=== PATIENT | female | born 1990 | race Caucasian/White ===

== ENCOUNTER 2020-03-13 14:11 | Emergency (ER) | payer SELFPAY ==
[~2020-03-13] VITALS: Ht 182.9 cm; Wt 67.0 kg
--- NOTE | 2020-03-13 15:13 | PHYS DOC ---
Past History Past Medical History: Other Additional Past Medical Histor: HERPES, IV DRUG ABUSE (MIKEL HARPER APRN) Past Surgical History: Tonsillectomy, Other Additional Past Surgical Histo: RIGHT KNEE (MIKEL HARPER APRN) Additional Smoking Information: VAPES Alcohol Use: None (MIKEL HARPER APRN) General Adult EDM: Chief Complaint: ABDOMINAL PAIN HPI: HPI: Patient is a 29-year-old female who presents with nausea and vomiting for the past 6 months. Patient states "I think I have intestinal parasites, I see worms in my poop". Patient reports last 6 months she has felt fatigue and lost 20 pounds this last year. Patient denies pain or any recent illness. (MIKEL HARPER APRN) Review of Systems: Review of Systems: Constitutional: Denies fever or chills Eyes: Denies change in visual acuity HENT: Denies nasal congestion or sore throat Respiratory: Denies cough or shortness of breath Cardiovascular: Denies chest pain or edema GI: Reports abdominal pain, nausea, vomiting, Denies bloody stools or diarrhea : Denies dysuria Musculoskeletal: Denies back pain or joint pain Integument: Denies rash Neurologic: Denies headache, focal weakness or sensory changes Endocrine: Denies polyuria or polydipsia Lymphatic: Denies swollen glands Psychiatric: Denies depression or anxiety (MIKEL HARPER APRN) Allergies: Allergies: Allergies Coded Allergies Type Severity Reaction Last Updated Verified No Known Drug Allergies 03/13/20 No (MIKEL HARPER APRN) Physical Exam: PE: Constitutional: Well developed, well nourished, no acute distress, non-toxic appearance. [] HENT: Normocephalic, atraumatic, bilateral external ears normal, oropharynx moist, no oral exudates, nose normal. [] Eyes: PERRLA, EOMI, conjunctiva normal, no discharge. [] Neck: Normal range of motion, no tenderness, supple, no stridor. [] Cardiovascular:Heart rate regular rhythm, no murmur [] Lungs & Thorax: Bilateral breath sounds clear to auscultation [] Abdomen: Bowel sounds normal, soft, no tenderness, no masses, no pulsatile masses. [] Skin: Warm, dry, no erythema, no rash. [] Back: No tenderness, no CVA tenderness. [] Extremities: No tenderness, no cyanosis, no clubbing, ROM intact, no edema. [] Neurologic: Alert and oriented X 3, normal motor function, normal sensory function, no focal deficits noted. [] Psychologic: Affect normal, judgement normal, mood normal. [] (MIKEL HARPER APRN) Current Patient Data: Vital Signs: Vital Signs Date Time Temp Pulse Resp B/P (MAP) Pulse Ox O2 Delivery O2 Flow Rate FiO2 03/13/20 14:20 97.7 97 20 148/82 (104) 98 Room Air (MIKEL HARPER APRN) EKG: EKG: [] (MIKEL HARPER APRN) Radiology/Procedures: Radiology/Procedures: [] (MIKEL HARPER APRN) Heart Score: Risk Factors: Risk Factors: DM, Current or recent (<one month) smoker, HTN, HLP, family history of CAD, obesity. Risk Scores: Score 0 - 3: 2.5% MACE over next 6 weeks - Discharge Home Score 4 - 6: 20.3% MACE over next 6 weeks - Admit for Clinical Observation Score 7 - 10: 72.7% MACE over next 6 weeks - Early Invasive Strategies (MIKEL HARPER APRN) Course & Med Decision Making: Course & Med Decision Making Pertinent Labs and Imaging studies reviewed. (See chart for details) 29-year-old female with nausea and vomiting and states that she thinks she has intestinal parasite because she sees worms in her poop. Stool sample sent for ova and parasites, UA sent. Will reassess once results come back. CMC, BMP, UA all negative. Discharge patient to home. Will call patient with results if positive. [] (MIKEL HARPER APRN) Course & Med Decision Making I have participated in the care of this patient and I have reviewed and agree with all pertinent clinical information above including history, exam, and recommendations. (MITZI REDD MD) Ana Disclaimer: Ana Disclaimer: This electronic medical record was generated, in whole or in part, using a voice recognition dictation system. (MIKEL HARPER APRN) Departure Departure: Impression: Primary Impression: Nausea & vomiting Qualified Codes: R11.2 - Nausea with vomiting, unspecified Disposition: 01 DC HOME SELF CARE/HOMELESS Condition: GOOD Referrals: PCP,NO (PCP) Patient Instructions: Nausea and Vomiting, [id number] Additional Instructions: EMERGENCY DEPARTMENT GENERAL DISCHARGE INSTRUCTIONS Thank you for coming to [facility] (ED) today and trusting us with you care. We trust that you had a positivie experience in our Emergency Department. If you wish to speak to the department management, you may call the director at [phone]. YOUR FOLLOW UP INSTRUCTIONS ARE FOLLOWS: 1. Do you have a private Doctor? If you do not have a private doctor, please ask for a resource list of physicians or clinics that may be able to assist you with follow up care. 2. The Emergency Physician has interpreted your x-rays. The X-Ray specialist will also review them. If there is a change in the findings, you will be notified in 48 hours when at all possible. 3. A lab test or culture has been done, your results will be reviewed and you will be notified if you need a change in treatment. ADDITIONAL INSTRUCTIONS AND INFORMATION: 1. Your care today has been supervised by a physician who is specially trained in emergency care. Many problems require more than one evaluation for a complete diagnosis and treatment. We recommend that you schedule your follow up appointment as recommended to ensure complete treatment of you illness or injury. If you are unable to obtain follow up care and continue to have a problem, or if your condition worsens, we recommend that you return to the ED. 2. We are not able to safely determine your condition over the phone nor are we able to give sound medical advice over the phone. For these safety reasons, if you call for medical advice we will ask you to come to the ED for further evaluation. 3. If you have any questions regarding these discharge instructions please call the ED at [phone]. SAFETY INFORMATION: In the interest of safety, wellness, and injury prevention; we encourage you to wear your sealbelt, if you smoke; quite smoking, and we encourage family to use a prot ective helmet for bicycling and other sporting events that present an increased risk for head injury. IF YOUR SYMPTOMS WORSEN OR NEW SYMPTOMS DEVELOP, OR YOU HAVE CONCERNS ABOUT YOUR CONDITION; OR IF YOUR CONDITION WORSENS WHILE YOU ARE WAITING FOR YOUR FOLLOW UP APPOINTMENT; EITHER CONTACT YOUR PRIMARY CARE DOCTOR, THE PHYSICIAN WHOSE NAME AND NUMBER YOU WERE GIVEN, OR RETURN TO THE ED IMMEDIATELY. MIKEL HARPER APRN Mar 13, 2020 15:13 MITZI REDD MD Mar 14, 2020 13:24
[2020-03-13 15:41] LABS: BASO % 1 % (0-3); EOS # 0.2 x10^3/uL (0.0-0.7); EOS % 3 % (0-3); HEMATOCRIT 34.9 % (36.0-47.0); HEMOGLOBIN 11.1 g/dL (12.0-15.5); LYMPH # 1.9 x10^3/uL (1.0-4.8); LYMPH % 31 % (24-48); MEAN CORPUSCULAR HEMOGLOBIN 27 pg (25-35); MEAN CORPUSCULAR HGB CONC 32 g/dL (31-37); MEAN CORPUSCULAR VOLUME 85 fL (79-100); MONO # 0.6 x10^3/uL (0.0-1.1); MONO % 10 % (0-9); NEUT # 3.5 x10^3uL (1.8-7.7); NEUT % 56 % (31-73); PLATELET COUNT 214 x10^3/uL (140-400); RED BLOOD COUNT 4.13 x10^6/uL (3.50-5.40); WHITE BLOOD COUNT 6.2 x10^3/uL (4.0-11.0)
[2020-03-13 15:50] LABS: CALCIUM 9.1 mg/dL (8.5-10.1); CREATININE 0.9 mg/dL (0.6-1.0); POTASSIUM 3.7 mmol/L (3.5-5.1)
[2020-03-13 16:25] LABS: BARBITURATES NEG (NEG); BENZODIAZEPINES NEG (NEG); CANNABINOIDS NEG (NEG); COCAINE NEG (NEG); METHADONE NEG (NEG); OPIATES POS (NEG); PHENCYCLIDINE NEG (NEG)
[2020-03-13 16:27] LABS: AMPHETAMINE/METHAMPHETAMINE POS (NEG)
[2020-03-13 16:31] LABS: BILIRUBIN,URINE NEG (NEG); CLARITY,URINE HAZY; COLOR,URINE YELLOW; GLUCOSE,URINE 100 mg/dL (NEG); NITRITE,URINE NEG (NEG); UROBILINOGEN,URINE 0.2 mg/dL (0.2 mg/dL)
[2020-03-13 16:32] LABS: RBC,URINE OCC /HPF (0-2)
[2020-03-13 16:33] LABS: AMORPHOUS SEDIMENT,UR PRESENT /HPF; BACTERIA,URINE 0 /HPF (0-FEW); SQUAMOUS EPITHELIAL CELL,UR MOD /LPF; WBC,URINE RARE /HPF (0-4)
[2020-03-13 16:40] VITALS: BP 124/84
== END 2020-03-13 16:47 | disposition home or self-care (01) ==
LOC: ER 14:11
DX: R11.2 Nausea with vomiting, unspecified (principal); R53.83 Other fatigue; R10.9 Unspecified abdominal pain; Z90.89 Acquired absence of other organs; Z98.890 Other specified postprocedural states
CPT/HCPCS: 80048; 80307; 81001; 85025; 87086; 87177; 87209; 99283

== ENCOUNTER 2020-11-06 03:38 | Emergency (ER) | payer SELFPAY ==
[~2020-11-06] VITALS: Ht 182.9 cm; Wt 67.0 kg
--- NOTE | 2020-11-06 03:52 | PHYS DOC ---
Past History Past Medical History: Other Additional Past Medical Histor: HERPES, IV DRUG ABUSE Past Surgical History: Tonsillectomy, Other Additional Past Surgical Histo: RIGHT KNEE Smoking: Cigarettes Alcohol Use: None Drug Use: Heroin, Marijuana General Adult HPI: HPI: "...I just twisted my Rt. foot and ankle.. " " I am having really severe pain..."''.. I also hurt this Ltl wrist about a week ago in a fall..." Patient is a 30 year old female who presents with above hx and complaints of Rt. foot and ankle injury. Injury occurred just prior to her arrival to the emergency department.Patient has been able to bear weight or walk on right foot since injury. No upper leg tenderness. Distal neurovascular appears to be equal to left foot. Lt wrist pain. Distal neurovascular equal to Rt. hand. Patient denies any recent travel. Patient denies any specific ill contacts. No history immunosuppression. Patient normally healthy. Patient does smoke tobacco, marijuana and uses Herion. Review of Systems: Review of Systems: Constitutional: Denies fever or chills Eyes: Denies change in visual acuity HENT: Denies nasal congestion or sore throat Respiratory: Denies cough or shortness of breath Cardiovascular: Denies chest pain or edema GI: Denies abdominal pain, nausea, vomiting, bloody stools or diarrhea : Denies dysuria Musculoskeletal: Complaints of Lt wrist and Rt. foot / ankle pain. . Integument: Denies rash Neurologic: Denies headache, focal weakness or sensory changes Endocrine: Denies polyuria or polydipsia Lymphatic: Denies swollen glands Psychiatric: Denies depression or anxiety Family History: Family History: Noncontributory Current Medications: Current Meds: See nursing for home meds Allergies: Allergies: Allergies Coded Allergies Type Severity Reaction Last Updated Verified No Known Drug Allergies 03/13/20 No Physical Exam: PE: Constitutional: In acute distress, non-toxic appearance. [] HENT: Normocephalic, atraumatic, bilateral external ears normal, oropharynx moist, no oral exudates, nose normal. [] Eyes: PERRLA, EOMI, conjunctiva normal, no discharge. [] Neck: Normal range of motion, no tenderness, supple, no stridor. [] Cardiovascular: Tachycardia heart rate regular rhythm, no murmur [] Lungs & Thorax: Bilateral breath sounds equal apex with scattered wheezes on auscultation [] Abdomen: Bowel sounds normal, soft, no tenderness, no masses, no pulsatile masses. [] Skin: Warm, dry, no erythema, no rash. Tattoos. Back: No tenderness, no CVA tenderness. [] Extremities: No tenderness, no cyanosis, no clubbing, ROM intact, no edema. [] Except findings as noted in HPI Neurologic: Alert and oriented X 3, moves all extremities on request, has distal sensory,, no focal deficits noted. [] Psychologic: Affect anxious, judgement normal, mood normal. [] EKG: EKG: [] Radiology/Procedures: Radiology/Procedures: [][place] [id number] IMAGING REPORT Signed PATIENT: CRYSTAL PEREA ACCOUNT: [id number] : 1990 LOCATION: ER AGE: 30 SEX: F EXAM STATUS: REG ER ORD. PHYSICIAN: DUSTIN PAUL MD REASON: injury PROCEDURE: ANKLE RIGHT 3V Right foot x-rays 3 views HISTORY: Right foot injury. FINDINGS: Well-defined chronic ossicle inferior to lateral malleolus of the ankle. Overlapping of the phalanges of the toes decreases sensitivity to detect an abnormality of the toes. No dislocation. Tiny somewhat linear calcifications along the lateral view overlying the midfoot of the tarsal metatarsal joints, as well as adjacent of the first tarsometatarsal joint on the oblique view and adjacent the base of the third metatarsal on the oblique view could represent small avulsion fracture fragments. There are also acute traumatic nondisplaced transverse fractures across the bases of the third and fourth metatarsals. Only visualized on the ankle x-rays is irregularity at the base of the first metatarsal suspicious for fracture. IMPRESSION: Acute traumatic nondisplaced transverse fractures across the base of the third and fourth metatarsals. Mildly distracted fracture of the base of the first metatarsal. Small linear densities overlying the base of the third metatarsal and first tarsal metatarsal joint at the midfoot may represent a small avulsion fractures. See above. Right ankle x-rays 3 views HISTORY: Injury. FINDINGS: Chronic 1 cm ossicle inferior of the lateral malleolus. Tiny chronic ossicle inferior of the medial malleolus. No fracture of the ankle. No dislocation. No talus osteochondral lesion. Soft tissues are unremarkable. IMPRESSION: No acute osseous injury of the ankle. Left wrist x-rays 3 views HISTORY: Injury. FINDINGS: No fracture. No dislocation. Small chronic ossicle adjacent of the f irst CMC joint. There is localized soft tissue swelling overlying the radial styloid. IMPRESSION: No acute osseous injury of the wrist. Focal soft tissue swelling overlying the radial styloid. Electronically signed by: Willow Genao MD (11/06/2020 5:07 AM) [facility] DICTATED AND SIGNED BY: WILLOW GENAO MD DATE: 11/06/20 0500 CC: DUSTIN PAUL MD; PCP,NO ~MTH0 0 Heart Score: C/O Chest Pain: N/A Risk Factors: Risk Factors: DM, Current or recent (<one month) smoker, HTN, HLP, family history of CAD, obesity. Risk Scores: Score 0 - 3: 2.5% MACE over next 6 weeks - Discharge Home Score 4 - 6: 20.3% MACE over next 6 weeks - Admit for Clinical Observation Score 7 - 10: 72.7% MACE over next 6 weeks - Early Invasive Strategies Course & Med Decision Making: Course & Med Decision Making Pertinent Labs and Imaging studies reviewed. (See chart for details) Wear splint. Distal neurovascular intact after application of Markell wrap. Use ice packs. Use crutches. Elevate ankle and foot. Take Tylenol and ibuprofen for pain. Follow-up primary care. Follow-up with [facility] Ortho. Impression: 1. Rt ankle Sprain 2. Lt wrist Sprain 3. Polysubstance abuse ( [place] drug screen + for Marijuana, Narcotics, Meth, ) 4. Avulsion Fx. Rt foot [] Dragon Disclaimer: Dragon Disclaimer: This electronic medical record was generated, in whole or in part, using a voice recognition dictation system. Departure Departure: Referrals: PCP,BRIANNE (PCP) Ana Disclaimer This chart was dictated in whole or in part using Voice Recognition software in a busy, high-work load, and often noisy Emergency Department environment. It may contain unintended and wholly unrecognized errors or omissions. DUSTIN PAUL MD Nov 06, 2020 03:52
[2020-11-06 04:30] LABS: BARBITURATES NEG (NEG); BENZODIAZEPINES NEG (NEG); CANNABINOIDS POS (NEG); COCAINE NEG (NEG); METHADONE NEG (NEG); OPIATES POS (NEG); PHENCYCLIDINE NEG (NEG)
[2020-11-06] MEDS ORDERED: oxyCODONE/APAP 5/325 1 TAB TABLET PO ONE (04:30)
[2020-11-06 04:31] LABS: BACTERIA,URINE 0 /HPF (0-FEW); BILIRUBIN,URINE NEG (NEG); CLARITY,URINE CLEAR; COLOR,URINE YELLOW; GLUCOSE,URINE NEG (NEG); NITRITE,URINE NEG (NEG); RBC,URINE 0 /HPF (0-2); SQUAMOUS EPITHELIAL CELL,UR OCC /LPF; UROBILINOGEN,URINE 0.2 mg/dL (0.2 mg/dL); WBC,URINE OCC /HPF (0-4)
[2020-11-06 04:34] LABS: AMPHETAMINE/METHAMPHETAMINE POS (NEG)
--- NOTE | 2020-11-06 05:10 | RAD ---
Right foot x-rays 3 views HISTORY: Right foot injury. FINDINGS: Well-defined chronic ossicle inferior to lateral malleolus of the ankle. Overlapping of the phalanges of the toes decreases sensitivity to detect an abnormality of the toes. No dislocation. Tiny somewhat linear calcifications along the lateral view overlying the midfoot of the tarsal metata rsal joints, as well as adjacent of the first tarsometatarsal joint on the oblique view and adjacent the base of the third metatarsal on the oblique view could represent small avulsion fracture fragment s. There are also acute traumatic nondisplaced transverse fractures across the bases of the third and fourth metatarsals. Only visualized on the ankle x-rays is irregularity at the base of the first met atarsal suspicious for fracture. IMPRESSION: Acute traumatic nondisplaced transverse fractures across the base of the third and fourth metatarsals. Mildly distracted fracture of the base of the first metatarsal. Small linear densities overlying the base of the third metatarsal and first tarsal metatarsal joint at the midfoot may repre sent a small avulsion fractures. See above. Right ankle x-rays 3 views HISTORY: Injury. FINDINGS: Chronic 1 cm ossicle inferior of the lateral malleolus. Tiny chronic ossicle inferior of th e medial malleolus. No fracture of the ankle. No dislocation. No talus osteochondral lesion. Soft tis sues are unremarkable. IMPRESSION: No acute osseous injury of the ankle. Left wrist x-rays 3 views HISTORY: Injury. FINDINGS: No fracture. No dislocation. Small chronic ossicle adjacent of the first CMC joint. There i s localized soft tissue swelling overlying the radial styloid. IMPRESSION: No acute osseous injury of the wrist. Focal soft tissue swelling overlying the radial sty loid. Electronically signed by: Alok Genao MD (11/06/2020 5:07 AM) [facility]
[2020-11-06 06:00] VITALS: BP 131/80
== END 2020-11-06 06:00 | disposition home or self-care (01) ==
LOC: ER 03:38
DX: S92.311A Displaced fracture of first metatarsal bone, right foot, initial encounter for closed fracture (principal); S93.401A Sprain of unspecified ligament of right ankle, initial encounter; S63.502A Unspecified sprain of left wrist, initial encounter; F19.10 Other psychoactive substance abuse, uncomplicated; F17.210 Nicotine dependence, cigarettes, uncomplicated; F12.10 Cannabis abuse, uncomplicated; F11.10 Opioid abuse, uncomplicated; X50.1XXA Overexertion from prolonged static or awkward postures, initial encounter; Y93.89 Activity, other specified; Y92.89 Other specified places as the place of occurrence of the external cause; Y99.8 Other external cause status
CPT/HCPCS: 36415; 73110; 73610; 73630; 80307; 81001; 81025; 99284-25